=== PATIENT | male | born 1990 | race Caucasian/White ===

== ENCOUNTER 2019-06-02 12:08 | Observation (INO) | payer OTHER ==
[~2019-06-02] VITALS: Ht 177.8 cm; Wt 136.5 kg
[2019-06-02 12:13] VITALS: Ht 177.8 cm; Wt 136.5 kg
[2019-06-02 14:23] LABS: BASOPHIL % 0.6 % (0-2); PLATELET COUNT 214 x10^3mcL (130-400)
[2019-06-02 14:24] LABS: RED CELL DISTRIBUTION WIDTH 16.6 % (11.5-14.5)
[2019-06-02 14:34] LABS: CALCIUM 9.4 mg/dL (8.5-10.1); CARBON DIOXIDE 25.5 mmol/L (21-32); CHLORIDE SERUM 103 mmol/L (98-107); CREATININE SERUM 0.9 mg/dL (0.7-1.3); GFR1 > 60 mL/min; GLUCOSE SERUM 139 mg/dL (74-106); POTASSIUM SERUM 4.2 mmol/L (3.5-5.1); SODIUM SERUM 138 mmol/L (136-145)
[2019-06-02 14:39] LABS: ALBUMIN 3.8 g/dL (3.4-5.0); ALKALINE PHOSPHATASE 49 U/L (46-116); ALT/SGPT 109 U/L (16-63); AST/SGOT 42 U/L (15-37); BILIRUBIN TOTAL 0.28 mg/dL (0.20-1.00); TOTAL PROTEIN, SERUM 7.6 g/dL (6.4-8.2)
[2019-06-02 16:41] LABS: CHOLESTEROL 219 mg/dL (<200); CHOLESTEROL/HDL RATIO 7.3; HDL CHOLESTEROL 30 mg/dL (40-60); TRIGLYCERIDES 418 mg/dL (<150)
[2019-06-02] MEDS ORDERED: ASPIRIN FOR CHI81 M1 PO (16:59)
[2019-06-02] MEDS ORDERED: PRILOSEC OTC20 M1 PO (16:59)
[2019-06-02 18:20] VITALS: BP 144/90
[2019-06-02 20:46] VITALS: BP 114/76
[2019-06-03 06:05] VITALS: BP 141/86
[2019-06-03 08:02] VITALS: BP 132/83
[2019-06-03 12:40] VITALS: BP 122/55
[2019-06-03 16:00] VITALS: BP 122/55
== END 2019-06-03 16:16 | disposition home or self-care (01) ==
LOC: ED 12:08 → DU 15:51
PROVIDERS: Emergency Medicine; ADMIT Internal Medicine
DX: R07.89 Other chest pain (principal); I10 Essential (primary) hypertension; E66.9 Obesity, unspecified
CPT/HCPCS: 99406; G0378; J1885